=== PATIENT | female | born 1995 | race Two or more races ===

== ENCOUNTER 2016-12-29 04:12 | Emergency (ER) | payer OTHER ==
--- NOTE | 2016-12-29 04:35 | ER Document Report ---
ED General <TAMMIE DEE - Last Filed: 12/29/16 07:40> <ENRIQUETA BOLAÑOS - Last Filed: 12/29/16 09:17> - General Chief Complaint: Psych Problem Stated Complaint: SUICIDAL IDEATION Notes: Patient is a 21-year-old female presents with complaint of suicide attempt. Patient says that she has been having thoughts of suicide. Patient says that she has been arguing with her a lot. She says that he was deployed and she is on her multiple times. There is come back she says unclear if he actually wants to stay with her. She says that they have been arguing. She denies any physical abuse. She says all her family is in [place] and therefore she has no support around her. She says tonight she decided that she did not want to live anymore and therefore took approximately thirty Celebrex 200mg tablets as well as fifty Tylenol 325 mg tablets. She says she took these medications between 3:30am and 3:45am. They did attempt to give her charcoal emesis but she did vomit. She denies any pain at this time other than a headache. She has no other complaints at this time. She denies any blood in her emesis. (TAMMIE DEE) Past Medical History - Social History Smoking Status: Unknown if Ever Smoked Frequency of alcohol use: None Drug Abuse: None Family History: Reviewed & Not Pertinent <TAMMIE DEE - Last Filed: 12/29/16 07:40> Review of Systems <TAMMIE DEE - Last Filed: 12/29/16 07:40> <ENRIQUETA BOLAÑOS - Last Filed: 12/29/16 09:17> - Review of Systems Notes: My Normal Review Basic REVIEW OF SYSTEMS: CONSTITUTIONAL : Denies fever, chills, or sweats. Denies recent illness. RESPIRATORY: Denies cough, cold, or chest congestion. Denies shortness of breath, difficulty breathing, or wheezing. GASTROINTESTINAL: Denies abdominal pain. Some vomiting. GENITOURINARY: Denies difficulty urinating, painful urination, burning, frequency, or blood in urine. FEMALE GENITOURINARY: Denies vaginal bleeding, abnormal or irregular periods. MUSCULOSKELETAL: Denies neck or back pain or joint pain or swelling. SKIN: Denies rash or skin lesions. NEUROLOGICAL: Denies altered mental status or loss of consciousness. Denies headache. Denies weakness or paralysis or loss of use of either side. Denies problems with gait or speech. Denies sensory or motor loss. PSYCHIATRIC: Suicide attempt. Question ALL OTHER SYSTEMS REVIEWED AND NEGATIVE. (TAMMIE DEE) Physical Exam <TAMMIE DEE - Last Filed: 12/29/16 07:40> <ENRIQUETA BOLAÑOS - Last Filed: 12/29/16 09:17> - Vital signs Vitals: Resp BP Pulse Ox 18 121/79 97 12/29/16 05:01 12/29/16 05:01 12/29/16 05:01 - Notes Notes: General Appearance: Well nourished, alert, cooperative, no acute distress, no obvious discomfort. Tearful on exam. Vitals: reviewed, See vital signs table. Head: no swelling or tenderness to the head Eyes: PERRL, EOMI, Conjuctiva clear Mouth: No decreasd moisture Throat: No tonsillar inflammation, No airway obstruction, No lymphadenopathy Neck: Supple, no neck tenderness Lungs: No wheezing, No rales, No rhonci, No accessory muscle use, good air exchange bilaterally. Heart: Normal rate, Regular rythm, No murmur, no rub Abdomen: Normal BS, soft, No rigidity, No abdominal tenderness, No guarding, no rebound, no abdominal masses, no organomegaly Extremities: strength 5/5 in all extremities, good pulses in all extremities, no swelling or tenderness in the extremities, no edema. Skin: warm, dry, appropriate color, no rash Neuro: speech clear, oriented x 3, normal affect, responds appropriately to questions. (TAMMIE DEE) Course - Laboratory Result Diagrams: 12/29/16 04:52 12/29/16 05:45 <TAMMIE DEE - Last Filed: 12/29/16 07:40> - Laboratory Result Diagrams: 12/29/16 04:52 12/29/16 05:45 <ENRIQUETA BOLAÑOS - Last Filed: 12/29/16 09:17> - Re-evaluation Re-evalutation: 12/29/16 07:40 We are waiting patient's 4 hour Tylenol level. If it is elevated above the threshold for N-acetylcysteine she will receive it. If her Tylenol level is not that threshold then she will not need to N-acetylcysteine. This test result will be followed by Dr. Bolaños. Patient is on involuntary commitment paperwork as she will need psychiatric evaluation due to her attempt of suicide. Dictation of this chart was performed using voice recognition software; therefore, there may be some unintended grammatical errors. (TAMMIE DEE) 12/29/16 09:16 4 hour Tylenol level down to 31 from 56. (ENRIQUETA BOLAÑOS) - Vital Signs Vital signs: Temp Pulse Resp BP Pulse Ox 97.4 F 15 105/70 98 12/29/16 06:42 12/29/16 06:01 12/29/16 06:01 12/29/16 06:01 - Laboratory Laboratory results interpreted by me: 12/29/16 12/29/16 12/29/16 04:52 05:45 07:35 WBC 10.7 H Salicylates < 1.0 L Acetaminophen 56 H 31 H - EKG Interpretation by Me Additional EKG results interpreted by me: 12/29/16 05:50 EKG is reviewed and interpreted by me. EKG shows normal sinus rhythm with rate of [address] segment elevation or depression. No ischemic T-wave inversions. Portable, QRS duration, QTc intervals are within normal range. No old EKG available for comparison. (TAMMIE DEE)
[2016-12-29 05:07] LABS: ABSOLUTE BASOPHILS # (AUTO) 0.1 10^3/uL (0.0-0.2); ABSOLUTE EOSINOPHILS # (AUTO) 0.1 10^3/uL (0.0-0.6); ABSOLUTE MONOCYTES (AUTO) 0.8 10^3/uL (0.1-1.4); ABSOLUTE NEUT (AUTO) 7.7 10^3/uL (1.7-8.2); BASOPHILS % (AUTO) 0.5 % (0-2); EOSINOPHILS % (AUTO) 1.1 % (0-6); HEMATOCRIT 39.3 % (36.0-47.0); HEMOGLOBIN 13.9 g/dL (12.0-15.5); HGB HCT DIFFERENCE 2.4; LYMPHOCYTES % (AUTO) 18.6 % (13-45); MEAN CORPUSCULAR HEMOGLOBIN 28.6 pg (27.0-33.4); MEAN CORPUSCULAR HGB CONC 35.3 g/dL (32.0-36.0); MEAN CORPUSCULAR VOLUME 81 fl (80-97); MONOCYTES % (AUTO) 7.8 % (3-13); RED BLOOD COUNT 4.86 10^6/uL (3.72-5.28); RED CELL DISTRIBUTION WIDTH 13.5 % (11.5-14.0); WHITE BLOOD COUNT 10.7 10^3/uL (4.0-10.5)
[2016-12-29 05:25] LABS: APPEARANCE,URINE CLEAR; BILIRUBIN,URINE NEGATIVE (NEGATIVE); GLUCOSE, URINE NEGATIVE (NEGATIVE); KETONES,URINE NEGATIVE (NEGATIVE); LEUKOCYTE ESTERASE,URINE NEGATIVE (NEGATIVE); NITRITE,URINE NEGATIVE (NEGATIVE); PROTEIN,URINE NEGATIVE (NEGATIVE); URINE SPECIFIC GRAVITY 1.026; UROBILINOGEN,URINE NEGATIVE mg/dL (<2.0)
[2016-12-29 05:43] LABS: URINE BARBITURATES SCREEN NEGATIVE; URINE METHADONE SCREEN NEGATIVE; URINE OPIATES LOW NEGATIVE; URINE PHENCYCLIDINE SCREEN NEGATIVE
[2016-12-29 06:16] LABS: ALANINE AMINOTRANSFERASE 26 U/L (9-52); ALBUMIN 3.8 g/dL (3.5-5.0); ALKALINE PHOSPHATASE 86 U/L (38-126); ANION GAP 12 (5-19); ASPARTATE AMINO TRANSFERASE 17 U/L (14-36); BILIRUBIN,DIRECT 0.3 mg/dL (0.0-0.4); BILIRUBIN,TOTAL 0.6 mg/dL (0.2-1.3); BLOOD UREA NITROGEN 13 mg/dL (7-20); CARBON DIOXIDE 23 mmol/L (22-30); CHLORIDE 106 mmol/L (98-107); CREATININE RESULT 0.64 mg/dL (0.52-1.25); GLUCOSE 93 mg/dL (75-110); POTASSIUM 3.6 mmol/L (3.6-5.0); SODIUM 140.9 mmol/L (137-145); TOTAL PROTEIN 6.7 g/dL (6.3-8.2)
[2016-12-29 06:18] LABS: ALCOHOL < 10 mg/dL (NONE DETECTED)
--- NOTE | 2016-12-29 08:20 | EKG REPORT ---
SEVERITY:- BORDERLINE ECG - SINUS RHYTHM NONSPECIFIC ST-T CHANGES INFERIOR LEADS : Confirmed by: Irineo Long MD 29-Dec-2016 08:19:40
--- NOTE | 2016-12-29 16:18 | ER Document Report ---
Doctor's Note Notes: 12/29/16 16:17 Patient has no complaints. Patient presented to the emergency department after Celebrex and Tylenol overdose. She has been medically cleared. Transport has been arranged to [facility] for further psychiatric care and evaluation.
[2016-12-29 17:47] VITALS: BP 130/93
--- NOTE | 2016-12-30 18:44 | ER Document Report ---
ED Psych Disorder / Suicide - General Chief Complaint: Psych Problem Stated Complaint: SUICIDAL IDEATION - HPI Notes: Patient is a 21-year-old female presents with complaint of suicide attempt. Patient says that she has been having thoughts of suicide. Patient says that she has been arguing with her a lot. She says that he was deployed and she is on her multiple times. There is come back she says unclear if he actually wants to stay with her. She says that they have been arguing. She denies any physical abuse. She says all her family is in [place] and therefore she has no support around her. She says tonight she decided that she did not want to live anymore and therefore took approximately thirty Celebrex 200mg tablets as well as fifty Tylenol 325 mg tablets. She says she took these medications between 3:30am and 3:45am. They did attempt to give her charcoal emesis but she did vomit. Patient disclosed that she had an argument with her . She states "I just got to the breaking point." Patient reports she took 2 bottles of Tylenol. Patient denies mental health history. Patient has no outpatient to health provider, has never been inpatient, and has never had substance abuse treatment. Patient is semi-alert and is oriented to person, place, time and circumstance. Mood is dysphoric with flat affect. Patient is noted to have difficulty staying awake. Patient endorses attempted suicide by overdose. Patient denies homicidal ideation. Patient denies auditory visual hallucinations. Delusions were absent and behaviors congruent with intact reality based presentation i.e. organized and linear thought processes. Intellectual abilities appear to be within the average range. Conversational speech was low but understandable. Eye contact was poor. Attention and concentration were fair. Insight, judgment , impulse control are poor. 311 (F32.9) unspecified depressive disorder Impression\\plan: Patient is recommended to continue under IVC. Patient was accepted to [facility] and transportation will occur today. Dr. Mcfarland was consulted on the care and management of this patient; attending physician is in agreement with recommended she is a disposition. - Related Data Allergies/Adverse Reactions: No Known Allergies Allergy (Unverified 12/29/16 07:56) Home Medications: Current Home Medications No Home Medications 12/29/16 [History] Past Medical History - Social History Smoking Status: Unknown if Ever Smoked Frequency of alcohol use: None Drug Abuse: None Family History: Reviewed & Not Pertinent Surgical Hx: Negative Physical Exam - Vital signs Vitals: Resp BP Pulse Ox 18 121/79 97 12/29/16 05:01 12/29/16 05:01 12/29/16 05:01 Course - Vital Signs Vital signs: Temp Pulse Resp BP Pulse Ox 98.7 F 14 130/93 H 98 12/29/16 17:47 12/29/16 17:45 12/29/16 17:45 12/29/16 17:47 - Laboratory Result Diagrams: 12/29/16 04:52 12/29/16 05:45 Laboratory results interpreted by me: 12/29/16 12/29/16 12/29/16 04:52 05:45 07:35 WBC 10.7 H Salicylates < 1.0 L Acetaminophen 56 H 31 H Discharge - Discharge Clinical Impression: Attempted suicide Disposition: [facility]
== END 2016-12-29 18:16 ==
LOC: ER 04:12
DX: T39.392A Poisoning by other nonsteroidal anti-inflammatory drugs [NSAID], intentional self-harm, initial encounter (principal); T39.1X2A Poisoning by 4-Aminophenol derivatives, intentional self-harm, initial encounter; F32.9 Major depressive disorder, single episode, unspecified
CPT/HCPCS: 36415; 80053; 80307; 81001; 85025; 93005; 93010; 99285